=== PATIENT | female | born 1965 | race Caucasian/White ===

== ENCOUNTER 2024-11-20 12:32 | Emergency (ER) | payer BC ==
[~2024-11-20] VITALS: Ht 170.2 cm; Wt 109.4 kg
[2024-11-20] MEDS: LIDOCAINE W/EPINEPHRINE 1% 20ML VIAL SC ONE (16:50)
[2024-11-20 17:33] VITALS: BP 166/93; TEMP 96.5; O2SAT 98
== END 2024-11-20 17:40 | disposition home or self-care (01) ==
LOC: M ED 12:32 → EDBD 12:32 → M ED 17:40
DX: S01.111A Laceration without foreign body of right eyelid and periocular area, initial encounter (principal); W01.10XA Fall on same level from slipping, tripping and stumbling with subsequent striking against unspecified object, initial encounter; Y92.410 Unspecified street and highway as the place of occurrence of the external cause; Y93.9 Activity, unspecified; Y99.9 Unspecified external cause status; Q07.00 Arnold-Chiari syndrome without spina bifida or hydrocephalus